=== PATIENT | male | born 1980 | race Caucasian/White ===

== ENCOUNTER 2018-10-17 11:17 | Emergency (ER) | payer OTHER ==
[~2018-10-17] VITALS: Ht 177.8 cm; Wt 93.0 kg
[2018-10-17 11:29] VITALS: Ht 177.8 cm; Wt 93.0 kg
[2018-10-17 14:01] LABS: microscopic required? YES; urine erythrocyte T (NEGATIVE)
== END 2018-10-17 11:54 | disposition home or self-care (01) ==
LOC: ED 11:17
PROVIDERS: Emergency Medicine
DX: R30.0 Dysuria (principal); F12.10 Cannabis abuse, uncomplicated; F17.210 Nicotine dependence, cigarettes, uncomplicated; R39.15 Urgency of urination; R10.30 Lower abdominal pain, unspecified
CPT/HCPCS: 76770

== ENCOUNTER 2019-07-27 15:26 | Emergency (ER) | payer OTHER ==
[~2019-07-27] VITALS: Ht 177.8 cm; Wt 93.9 kg
[2019-07-27 15:36] VITALS: Ht 177.8 cm; Wt 93.9 kg
[2019-07-27 17:40] VITALS: BP 130/70
== END 2019-07-27 17:40 | disposition home or self-care (01) ==
LOC: ED 15:26
DX: S43.085A Other dislocation of left shoulder joint, initial encounter (principal); F17.210 Nicotine dependence, cigarettes, uncomplicated; M54.9 Dorsalgia, unspecified; V80.010A Animal-rider injured by fall from or being thrown from horse in noncollision accident, initial encounter; Y93.89 Activity, other specified; Y92.89 Other specified places as the place of occurrence of the external cause; Y99.8 Other external cause status
CPT/HCPCS: 90715; 99406; J3010; J3490; Q0092